=== PATIENT | male | born 1945 | race Caucasian/White ===

== ENCOUNTER 2019-06-04 05:26 | Emergency (ER) | payer MEDICARE ==
[~2019-06-04] VITALS: Ht 172.7 cm; Wt 90.7 kg
[~2019-06-04 05:26] MED LIST: ASPI81EC PO; ATOR10 PO; GLUCHON PO; LISHYD1012 PO; Norco 5-325 Ta1 EACH PO; Omeprazole20 M1 PO
[2019-06-04] MEDS ORDERED: ATORVASTATIN CA10 MG PO (05:51)
[2019-06-04] MEDS ORDERED: ZESTORETIC 20-121 EA PO (05:51)
[2019-06-04] MEDS ORDERED: OMEP20ER PO (05:52)
[2019-06-04 06:16] LABS: Source, Urine Clean Catch
[2019-06-04 06:18] LABS: Bilirubin, Urine Neg (Neg); Blood, Urine 1+ (Neg); Glucose Qualitative, Urine Neg (Neg); Ketones, Urine Neg (Neg); Leukocyte Esterase, Urine 1+ (Neg); Nitrite, Urine Neg (Neg); Protein, Urine Neg (Neg); Urobilinogen, Urine NORM (Normal)
[2019-06-04 06:24] LABS: Appearance, Urine Clear (Clear); Color, Urine Yellow (P-Yellow)
[2019-06-04 06:25] LABS: Bacteria Few /hpf; Mucus Light (0-Heavy); Red Blood Cells, Urine 0-2 /hpf (0-2); Squamous Epithelial Cells Rare /hpf (Few); White Blood Cells, Urine 0-2 /hpf (0-5)
[2019-06-04 06:41] LABS: BASOPHILS ABSOLUTE AUTO 0.02 K/mm3 (0.00-0.23); BASOPHILS PERCENT AUTO 0 % (0-2); EOSINOPHILS ABSOLUTE AUTO 0.03 K/mm3 (0.00-0.68); EOSINOPHILS PERCENT AUTO 0 % (0-6); Hematocrit 51.1 % (37.0-53.0); Hemoglobin 17.7 g/dL (13.5-17.5); IMMATURE GRAN ABSOLUTE AUTO 0.03 K/mm3 (0.00-0.10); IMMATURE GRAN PERCENT AUTO 0 % (0-1); LYMPHOCYTES ABSOLUTE AUTO 1.68 K/mm3 (0.84-5.20); LYMPHOCYTES PERCENT AUTO 24 % (21-46); MONOCYTES ABSOLUTE AUTO 0.66 K/mm3 (0.16-1.47); MONOCYTES PERCENT AUTO 9 % (4-13); Mean Corpuscular HGB 31.3 pg (26.0-34.0); Mean Corpuscular HGB Conc 34.6 g/dL (31.5-36.5); Mean Corpuscular Volume 90 fL (80-100); Mean Platelet Volume 11.4 fL (9.1-12.4); NEUTROPHILS ABSOLUTE AUTO 4.68 K/mm3 (1.96-9.15); NEUTROPHILS PERCENT AUTO 66 % (41-73); Platelet Count 175 K/mm3 (150-400); RDW Coefficient Variation 13.1 % (11.7-14.2); RDW Standard Deviation 43.8 fL (35.1-46.3); Red Blood Cell Count 5.66 M/mm3 (4.30-5.90)
[2019-06-04 06:55] LABS: Alanine Aminotransfer (ALT/SGP 26 U/L (12-78); Albumin, Blood 4.1 g/dL (3.4-5.0); Albumin/Globulin Ratio 1.1 (0.8-1.8); Alk Phos 97 U/L (50-136); Anion Gap 8 mmol/L (6-16); Aspartate Aminotrans (AST/SGOT 14 U/L (12-37); Bilirubin, Total 0.5 mg/dL (0.1-1.0); Blood Urea Nitrogen 13 mg/dL (8-24); CO2, Blood 25 mmol/L (21-32); Calcium, Blood 8.9 mg/dL (8.5-10.1); Chloride, Blood 103 mmol/L (98-108); Creatinine, Blood 0.69 mg/dL (0.60-1.20); Globulin, Blood 3.9 g/dL (2.2-4.0); Glomerular Filtration Rate >60 (60-); Glucose, Blood 108 mg/dL (70-99); Potassium, Blood 4.2 mmol/L (3.5-5.5); Sodium, Blood 136 mmol/L (136-145)
[2019-06-04] MEDS ORDERED: Cyclobenzaprine5 MG PO (08:31)
== END 2019-06-04 08:50 | disposition home or self-care (01) ==
LOC: ER 05:26
PROVIDERS: Emergency Medicine
DX: M54.5 Low back pain (principal); R10.2 Pelvic and perineal pain; Z91.040 Latex allergy status; Z88.8 Allergy status to other drugs, medicaments and biological substances; Z79.899 Other long term (current) drug therapy; E78.5 Hyperlipidemia, unspecified; Z87.891 Personal history of nicotine dependence
CPT/HCPCS: 74177; 80053; 81001; 83690; 85025; 87086; 99284-25; Q9967

== ENCOUNTER 2021-09-18 08:05 | Day surgery (SDC) | payer MEDICARE ==
[~2021-09-18] VITALS: Ht 172.7 cm; Wt 88.0 kg
[~2021-09-18 08:05] MED LIST changes: +ATORVASTATIN CA10 MG PO; +Cyclobenzaprine5 MG PO; +ELIQUIS5 M2; +METO25ER; +OMEP20ER PO; +ZESTORETIC 20-121 EA PO
[2021-09-18] MEDS ORDERED: DIGOX250 MCG PO (08:44)
[2021-09-18 08:48] LABS: BASOPHILS ABSOLUTE AUTO 0.03 K/mm3 (0.00-0.23); BASOPHILS PERCENT AUTO 1 % (0-2); EOSINOPHILS ABSOLUTE AUTO 0.09 K/mm3 (0.00-0.68); EOSINOPHILS PERCENT AUTO 2 % (0-6); Hematocrit 53.2 % (37.0-53.0); Hemoglobin 18.2 g/dL (13.5-17.5); IMMATURE GRAN ABSOLUTE AUTO 0.01 K/mm3 (0.00-0.10); IMMATURE GRAN PERCENT AUTO 0 % (0-1); LYMPHOCYTES ABSOLUTE AUTO 2.42 K/mm3 (0.84-5.20); LYMPHOCYTES PERCENT AUTO 45 % (21-46); MONOCYTES ABSOLUTE AUTO 0.77 K/mm3 (0.16-1.47); MONOCYTES PERCENT AUTO 14 % (4-13); Mean Corpuscular HGB 29.5 pg (26.0-34.0); Mean Corpuscular HGB Conc 34.2 g/dL (31.5-36.5); Mean Corpuscular Volume 86 fL (80-100); Mean Platelet Volume 11.5 fL (9.1-12.4); NEUTROPHILS ABSOLUTE AUTO 2.12 K/mm3 (1.96-9.15); NEUTROPHILS PERCENT AUTO 39 % (41-73); Platelet Count 144 K/mm3 (150-400); RDW Coefficient Variation 13.4 % (11.7-14.2); RDW Standard Deviation 42.5 fL (35.1-46.3); Red Blood Cell Count 6.17 M/mm3 (4.30-5.90); White Blood Cell Count 5.44 K/mm3 (4.00-11.30)
[2021-09-18 09:05] LABS: International Normalized Ratio 1.19; Prothrombin Time Results 12.4 Sec (9.7-11.5)
[2021-09-18 09:27] LABS: Anion Gap 3 mmol/L (6-16); Blood Urea Nitrogen 20 mg/dL (8-24); Bun/Creatinine Ratio 22.2 (12.0-20.0); CO2, Blood 28 mmol/L (21-32); Chloride, Blood 109 mmol/L (98-108); Glomerular Filtration Rate >60 (60-); Glucose, Blood 99 mg/dL (70-99); Magnesium, Blood 2.2 mg/dL (1.6-2.4); Potassium, Blood 4.1 mmol/L (3.5-5.5); Sodium, Blood 140 mmol/L (136-145)
== END 2021-09-18 23:12 | disposition home or self-care (01) ==
LOC: MHTC 08:05
PROVIDERS: Internal Medicine Cardiovascular Disease
DX: I48.19 Other persistent atrial fibrillation (principal)
CPT/HCPCS: 80048; 83735; 85025; 85610; 92960; 93005; 93010; 99152; J2250; J2310; J3010; J7030

== ENCOUNTER 2022-06-15 06:38 | Day surgery (SDC) | payer MEDICARE ==
[~2022-06-15] VITALS: Ht 172.7 cm; Wt 92.9 kg
[~2022-06-15 06:38] MED LIST changes: +DIGOX250 MCG PO
[2022-06-15] MEDS ORDERED: ZYRTEC10 M2 PO (07:02)
[2022-06-15] MEDS ORDERED: ALLO300 PO (07:02)
--- NOTE | 2022-06-15 07:13 | NUR ---
06/15/22 0713 Una Mancini CALL KIMBERLY WITHIN REACH. TETRACAINE AT 0701 IN THE RIGHT EYE AND PLEDGETT AT [phone]
== END 2022-06-15 08:50 | disposition home or self-care (01) ==
LOC: ORSCSDS 06:38
PROVIDERS: Ophthalmology
PROC: 08RJ3JZ Replacement of Right Lens with Synthetic Substitute, Percutaneous Approach (ICD-10-PCS; principal; 2022-06-15 08:00)
DX: H25.11 Age-related nuclear cataract, right eye (principal); I10 Essential (primary) hypertension; G47.33 Obstructive sleep apnea (adult) (pediatric); Z79.899 Other long term (current) drug therapy; Z79.01 Long term (current) use of anticoagulants
CPT/HCPCS: J2001; J2250; J3010; J3301; J7040; V2632

== ENCOUNTER 2022-07-01 06:39 | Day surgery (SDC) | payer MEDICARE ==
[~2022-07-01] VITALS: Ht 172.7 cm; Wt 92.6 kg
[~2022-07-01 06:39] MED LIST changes: +ALLO300 PO; +ZYRTEC10 M2 PO
== END 2022-07-01 08:38 | disposition home or self-care (01) ==
LOC: ORSCSDS 06:39
PROVIDERS: Ophthalmology
PROC: 08RK3JZ Replacement of Left Lens with Synthetic Substitute, Percutaneous Approach (ICD-10-PCS; principal; 2022-07-01 08:00)
DX: H25.12 Age-related nuclear cataract, left eye (principal); Z96.1 Presence of intraocular lens; I10 Essential (primary) hypertension; K21.9 Gastro-esophageal reflux disease without esophagitis; I48.91 Unspecified atrial fibrillation; E78.5 Hyperlipidemia, unspecified; G47.33 Obstructive sleep apnea (adult) (pediatric); E66.9 Obesity, unspecified; Z68.31 Body mass index [BMI] 31.0-31.9, adult; Z79.01 Long term (current) use of anticoagulants; Z79.899 Other long term (current) drug therapy
CPT/HCPCS: J2001; J2250; J3010; J3301; J7040; V2632

== ENCOUNTER 2022-10-26 05:32 | Day surgery (SDC) | payer MEDICARE ==
--- NOTE | 2022-10-26 08:12 | NUR ---
PT VERBALIZED UNDERSTANDING OF WRITTEN AND VERBAL D/C INST. IV REMOVED. SR 60 BPM ON D/C. PT TAKEN OUT OF THE [facility]ENTER VIA W/C.
== END 2022-10-26 22:40 | disposition home or self-care (01) ==
LOC: MHTC 05:32
DX: I48.0 Paroxysmal atrial fibrillation (principal); I71.40 Abdominal aortic aneurysm, without rupture, unspecified; E66.9 Obesity, unspecified; I50.20 Unspecified systolic (congestive) heart failure; I11.0 Hypertensive heart disease with heart failure; Z91.040 Latex allergy status; Z96.653 Presence of artificial knee joint, bilateral
CPT/HCPCS: 92960; 93005; 93010; J2704; J7030

== ENCOUNTER 2023-03-16 13:23 | Day surgery (SDC) | payer MEDICARE ==
[~2023-03-16] VITALS: Ht 172.7 cm; Wt 95.0 kg
[2023-03-16 13:58] VITALS: BP 143/106
[2023-03-16 14:02] VITALS: BP 143/106
[2023-03-16] MEDS ORDERED: Lisinopril-Hct1 EAC4 PO (14:06)
[2023-03-16] MEDS ORDERED: METO100ER PO (14:07)
[2023-03-16] MEDS ORDERED: PACERONE100 M1 PO (14:08)
[2023-03-16 14:15] VITALS: BP 146/123
[2023-03-16 14:18] VITALS: BP 124/82
[2023-03-16 14:21] VITALS: BP 129/89
[2023-03-16 14:30] VITALS: BP 105/71
--- NOTE | 2023-03-16 15:08 | NUR ---
PT TOLERATES CARDIOVERSION WELL. VSS.NADN. PT DENIES NEEDS. PT IV DC'D. CATH INTACT. PRESSURE DSG APPLIED. PT AND S/O VERBALIZES UNDERSTANDING WRITTEN AND VERBAL INSTRUCTIONS. PT DRESSES SELF WITHOUT DIFF. PT DC TO HOME VIA WC BY S/O
== END 2023-03-16 22:54 | disposition home or self-care (01) ==
LOC: MHTC 13:23
DX: I48.0 Paroxysmal atrial fibrillation (principal); I50.20 Unspecified systolic (congestive) heart failure; I34.0 Nonrheumatic mitral (valve) insufficiency; I48.91 Unspecified atrial fibrillation; I51.7 Cardiomegaly; I77.819 Aortic ectasia, unspecified site; K22.70 Barrett's esophagus without dysplasia; F10.90 Alcohol use, unspecified, uncomplicated; G47.33 Obstructive sleep apnea (adult) (pediatric); E66.01 Morbid (severe) obesity due to excess calories; Z68.32 Body mass index [BMI] 32.0-32.9, adult; Z87.891 Personal history of nicotine dependence; Z91.040 Latex allergy status; Z79.01 Long term (current) use of anticoagulants; Z79.899 Other long term (current) drug therapy
CPT/HCPCS: 92960; 93005; 93010; 99152; J2250; J3010; J7030

== ENCOUNTER → 2023-07-17 | Outpatient (CLI) | payer MEDICARE ==
[~2023-07-17] MED LIST changes: +Lisinopril-Hct1 EAC4 PO; +METO100ER PO; +PACERONE100 M1 PO
== END | disposition home or self-care (01) ==
LOC: LAB 12:10 → LAB SHORT 12:10
DX: S61.502A Unspecified open wound of left wrist, initial encounter (principal)
CPT/HCPCS: 87070; 87075; 87205

== ENCOUNTER 2024-08-20 09:59 | Emergency (ER) | payer MEDICARE ==
[~2024-08-20] VITALS: Ht 172.7 cm; Wt 90.7 kg
[2024-08-20 10:10] VITALS: BP 137/77
[2024-08-20] MEDS ORDERED: Ketorolac Tromethamine 15mg Vial IM ONE (12:50)
[2024-08-20] MEDS ORDERED: Acetaminophen 500 MG Tab PO ONE (12:55)
== END 2024-08-20 14:02 | disposition home or self-care (01) ==
LOC: ER 09:59
DX: M77.9 Enthesopathy, unspecified (principal); E78.5 Hyperlipidemia, unspecified; I48.91 Unspecified atrial fibrillation; Z87.891 Personal history of nicotine dependence; Z79.899 Other long term (current) drug therapy; Z91.040 Latex allergy status; Z91.048 Other nonmedicinal substance allergy status
CPT/HCPCS: 72100; 96372; 99283-25; A9270; J1885